=== PATIENT | female | born 1985 | race Caucasian/White ===

== ENCOUNTER 2016-06-24 22:13 | Emergency (ER) | payer SELFPAY ==
[~2016-06-24] VITALS: Ht 154.9 cm; Wt 64.9 kg
[~2016-06-24 22:13] MED LIST: ACET325T9 PO; CIPR500T94 PO; HYDR-971 PO; OMEP20CA9 PO; ONDA4TAB10 SL
[2016-06-24 22:48] VITALS: BP 102/68
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
[2016-06-24] MEDS ORDERED: HYDR10SY8 PO (23:37)
--- NOTE | 2016-06-25 06:34 | EKG ---
[facility] [address] [place] [address] Test Date: 2016-06-24 Test Time: 23:27:53 Pat Name: ARMINDA ARMENDARIZ Department: Room: Gender: Female [employer]: : [id number] Requested By: VERONICA KEITH Order Number: [id number] Reading MD: Mary Colorado Measurements Intervals [place] Rate: 73 P: 59 FL: 156 QRS: 16 QRSD: 52 T: 57 QT: 410 QTc: 456 Interpretive Statements SINUS RHYTHM LOW VOLTAGE RI6.01 Unconfirmed report No previous ECG available for comparison Electronically Signed On 06-26-2016 20:13:16 CDT by Mary Colorado
== END 2016-06-24 23:40 | disposition home or self-care (01) ==
LOC: ER 22:13
DX: F41.9 Anxiety disorder, unspecified (principal); R07.89 Other chest pain; J45.909 Unspecified asthma, uncomplicated; E03.9 Hypothyroidism, unspecified; Z87.820 Personal history of traumatic brain injury; Z88.8 Allergy status to other drugs, medicaments and biological substances
CPT/HCPCS: 93005; 99284-25